=== PATIENT | female | born 1985 | race Caucasian/White ===

== ENCOUNTER 2016-03-11 12:38 | Outpatient (CLI) | payer MEDICAID, OTHER | END 2016-03-11 12:39 | disposition home or self-care (01) | DX: R94.6 Abnormal results of thyroid function studies (principal); O20.0 Threatened abortion ==

== ENCOUNTER 2016-03-25 12:29 | Outpatient (CLI) | payer OTHER | END 2016-03-25 12:30 | disposition home or self-care (01) | DX: O26.851 Spotting complicating pregnancy, first trimester (principal); Z3A.01 Less than 8 weeks gestation of pregnancy ==

== ENCOUNTER 2016-03-31 10:45 | Outpatient (CLI) | payer OTHER | END 2016-03-31 10:46 | disposition home or self-care (01) | DX: O03.4 Incomplete spontaneous abortion without complication (principal) ==

== ENCOUNTER 2016-11-04 07:03 | Outpatient (CLI) | payer OTHER | END 2016-11-04 07:04 | disposition home or self-care (01) | LOC: LAB.F 07:03 | PROVIDERS: ATTEND Midwife | DX: O36.8910 Maternal care for other specified fetal problems, first trimester, not applicable or unspecified (principal) | CPT/HCPCS: 36415; 84702 ==

== ENCOUNTER 2016-11-13 11:03 | Outpatient (CLI) | payer OTHER | END 2016-11-13 11:04 | disposition home or self-care (01) | LOC: LAB 11:03 | PROVIDERS: ATTEND Midwife | DX: O20.0 Threatened abortion (principal) | CPT/HCPCS: 84702 ==

== ENCOUNTER 2016-11-18 10:15 | Outpatient (CLI) | payer OTHER | END 2016-11-18 10:16 | disposition home or self-care (01) | LOC: LAB.F 10:15 | PROVIDERS: ATTEND Midwife | DX: O20.0 Threatened abortion (principal) | CPT/HCPCS: 36415; 84702 ==

== ENCOUNTER 2023-01-31 14:46 | Outpatient (CLI) | payer BC ==
--- NOTE | 2023-02-01 14:20 | Ultrasound Report ---
PROCEDURE: Pelvic w/Transvaginal INDICATIONS: DYSMENORRHEA TECHNIQUE: Real-time scanning was performed of the pelvic organs, with image documentation. Additional endovagi nal scanning was necessary due to incomplete visualization of the adnexal and endometrial structures by transabdominal scanning. COMPARISON: None. FINDINGS: Uterus: Uterus is anteverted and normal in size at 8.1 x 4.7 x 5.7 cm. The myometrium is heterogene ous. The endometrium measures 13 mm in combined thickness. Left intramural versus submucosal fibroi d measuring 2.0 cm Ovaries: The right ovary measures 3.3 x 2.6 x 4.3 cm, with a calculated ovarian volume of 19.3 cc. Right ovarian hemorrhagic cyst measuring 1.3 cm. The left ovary measures 2.8 x 1.9 x 4.1 cm, with a c alculated ovarian volume of 11.4 cc. Less than 12 follicles can be seen in each ovary. No adnexal m asses are seen. No cystic lesions measuring greater than 3 cm. Other: No pathologic free abdominal or pelvic fluid. IMPRESSION: 1.Left intramural versus submucosal fibroid measuring 2.0 cm. 2.Right ovarian hemorrhagic cyst measuring 1.3 cm, statistically benign in a premenopausal female. 3.Endometrium measures 13 mm which is within normal limits for a premenopausal female. Reviewed by: Fidel Sparks MD on 02/01/2023 2:19 PM PST Approved by: Fidel Sparks MD on 02/01/2023 2:19 PM PST Station ID: [id number]
== END 2023-01-31 14:47 | disposition home or self-care (01) ==
LOC: DI 14:46
PROVIDERS: ATTEND Registered Nurse
DX: N94.5 Secondary dysmenorrhea (principal); D25.9 Leiomyoma of uterus, unspecified; N83.201 Unspecified ovarian cyst, right side

== ENCOUNTER 2024-10-14 12:51 | Observation (INO) ==
[2024-10-14] MEDS: ONDANSETRON 4 MG/2 ML VIAL IVP STA ×2 (13:13→19:22)
[2024-10-14] MEDS: fentaNYL 100 MCG/2 ML VIAL IVP STA (13:13)
--- NOTE | 2024-10-14 13:15 | ED Physician Documentation ---
History of Present Illness Stated complaint Stated Complaint: ABD PX Chief complaint Chief Complaint: Abd Pain Additonal information Additional information: Patient is a 39-year-old female who presents to the ER for recurrence of abdominal pain. She was seen overnight, and ultrasounds were performed which showed a large right-sided adnexal mass, uterine fibroids. She has a 2-year history of ongoing symptoms, and today at 3:30 PM is supposed to have an MRI of her pelvis performed. She was discharged this morning by myself after her symptoms were controlled, and her ultrasounds did not appear acute. She went home and nap for an hour, and states that she woke up with significant pain in the same area. She arrives via EMS. She denies fever chills chest pain or shortness of breath. She does endorse nausea associate with this pain. She is significantly uncomfortable. Review of Systems Status of ROS: See HPI Meds/Allgy Home Medications Ambulatory Orders Medication Instructions Recorded Confirmed semaglutide 1 mg/dose (2 mg/1.5 1 mg subcut QWEEK 09/0710/14/24 mL) subcutaneous pen injector nitrofurantoin 100 mg PO Q12H 5 days #10 ca ps 10/14/24 monohydrate/macrocrystals 100 mg capsule (Macrobid) Allergies Allergies Allergy/AdvReac Type Severity Reaction Status Date / Time No Known Drug Allergies Allergy Verified 10/14/24 12:54 PFSH Active Problems All Active Problems Intractable pain (Acute) IUD complication (Acute) Endometrioma of both ovaries (Acute) Pelvic pain in female (Acute) UTI (urinary tract infection) (Acute) Abdominal pain (Acute) Uterine fibroid (Acute) Adnexal mass (Acute) Family history of oral cancer (Acute) Left adnexal tenderness (Acute) History of endometriosis (Acute) Ovarian cyst, left (Acute) Pelvic pain in female (Acute) History of ovarian cyst (Acute) History of uterine fibroid (Acute) History of cervical dysplasia (Acute) Abnormal uterine bleeding (AUB) (Acute) Breast changes, fibrocystic (Acute) Dense breast tissue (Acute) History of breast augmentation (Acute) Medical History Medical History (Updated 10/14/24 @ 20:05 by Enmanuel Jean-Baptiste MD) History of uterine fibroid Family History Family History (Updated 08/01/24 @ 10:12 by Mercedes Larios MA) Mother Oral cancer Social History Social History Smoking Status: Smoker current status unk Do you feel safe in your home environment?: Yes History of physical, verbal, emotional, or financial abuse?: No Are you sexually active?: No Exam Exam Vital Signs: Vital Signs x48h Pulse Resp BP Pulse Ox 10/14/24 20:17 88 18 124/78 95 10/14/24 18:21 80 18 91/58 L 99 10/14/24 16:07 73 18 93 10/14/24 15:00 68 15 92/54 L 93 Constitutional Appears uncomfortable, writhing in bed, intermittently moaning. Eyes conjunctivae normal Respiratory breath sounds equal bilaterally, normal respiratory effort, clear to aus cultation bilaterally and no wheezes Cardiovascular normal heart rate noted, regular rhythm noted and no murmur Gastrointestinal Significant tenderness palpation in pelvic region, worse on right side. Guarding is present. No upper abdominal tenderness to palpation. No rigidity. No CVA tenderness bilaterally. Back/Pelvis no thoracic spine tenderness and no lumbar spine tenderness Neurology GCS 15 Psychiatry mental status grossly normal and oriented x3 Skin skin color normal Results Vitals Vitals: Vital Signs - 24 hr 10/14/24 09:31 10/14/24 09:35 10/14/24 12:52 Pulse Rate Respiratory Rate Blood Pressure O2 Saturation O2 Source Room air Pain Intensity 8 10 10/14/24 13:13 10/14/24 13:32 10/14/24 14:20 Pulse Rate Respiratory Rate Blood Pressure O2 Saturation O2 Source Pain Intensity 10 7 10 10/14/24 15:00 10/14/24 16:07 10/14/24 16:54 Pulse Rate 68 73 Respiratory Rate 15 18 Blood Pressure 92/54 L O2 Saturation 93 93 O2 Source Room air Room air Pain Intensity 5 8 10/14/24 17:15 10/14/24 17:36 10/14/24 18:17 Pulse Rate Respiratory Rate Blood Pressure O2 Saturation O2 Source Pain Intensity 8 7 10 10/14/24 18:21 10/14/24 19:23 10/14/24 20:08 Pulse Rate 80 Respiratory Rate 18 Blood Pressure 91/58 L O2 Saturation 99 O2 Source Room air Pain Intensity 6 9 10 10/14/24 20:17 Pulse Rate 88 Respiratory Rate 18 Blood Pressure 124/78 O2 Saturation 95 O2 Source Pain Intensity Oxygen O2 Source Room air Labs Labs: Laboratory Tests 10/14/24 13:24 Lactic Acid 1.6 PD Medical Decision Making ED course ED course: Assessment: This is a 39-year-old female comes back to the ER a few hours after discharge this morning with significant onset of worsened lower abdominal pain. Patient states that the pain feels similar to previous presentations where she has been worked up for torsion and found to have a large mass on her right adnexa. DDx: Includes but not limited to, ovarian torsion, ovarian cyst, hemorrhagic ovarian cyst, UTI, uterine fibroid, pelvic inflammatory disease, TOA, etc. Workup: Labs completed previously this morning during initial visit. MRI pelvis shows bilateral ovarian endometriosis plus or minus focal uterine adenomyosis versus fibroids. There is also inferior displacement and malposition of the IUD. Treatment: Fentanyl 50 mcg, Zofran 4 mg x 2, Dilaudid 1 mg x 2, Dilaudid 0.5 mg x 2 Discussion: I discussed this patient's presentation with the on-call medical insurance clerk who recommended that she continue to receive pain medication and obtain her MRI 330pm today. I did initially order repeat ultrasounds out of concern that she was having torsion however the radiologist and broom builder inform me that they were not able to see flow reliably due to the extent of her mass, and felt that it would be futile to obtain an ultrasound because they would not be able to tell whether she was having torsion or not based off of her anatomy. Therefore it was recommended that she get her MRI soon as possible which is already scheduled for 330 this afternoon. The medical insurance clerk on-call did come evaluate the patient, and removed her IUD hoping that would help her pain due to its malposition. However on reassessment the patient is still having significant discomfort, and therefore will be admitted to the [facility] for pain control and possible removal of her mass in the OR tonight or tomorrow. Patient agreeable with this plan. At time of my signout her pain was still present but more controlled. She remained hemodynamically stable throughout her time in the ER under my care. Discharge Plan Discharge Patient Disposition: 66 [facility] DC/Xfer Condition: Stable Clinical Impression: Pelvic pain in female Prescriptions: No Action nitrofurantoin monohyd/m-cryst [Macrobid] 100 mg capsule 100 mg PO Q12H 5 Days Qty: 10 0RF Rx Instructions: must administer with a meal/food Mirena 21 mcg/24hr (up to 8 yrs) 52 mg intrauterine device 1 device intrauterine ONCE Qty: 1 0RF semaglutide 1 mg/dose (2 mg/1.5 mL) pen injector 1 mg subcut QWEEK Print Language: Armenian
--- OUTSIDE RECORDS SUMMARY | 2024-10-14 13:40 | EXTERNAL MEDICAL SUMMARY RPT | Continuity of Care Document ---
Author Organization [facility] Address [address] [place] [address] Phone Problems date description facility 2024-08-05 09:36 Abnormal uterine and vaginal bl eeding, unspecified [facility] 2024-08-05 09:36 Pelvic and perineal pain [facility] 2024-08-05 09:36 Personal history of other benig n neoplasm [facility] 2024-08-05 09:36 Personal history of cervical dy splasia [facility] 2024-08-05 09:36 Personal history of other diseases of the female genital tract [facility] 2024-08-05 09:38 Diffuse cystic mastopathy of un specified breast [facility] 2024-08-05 09:38 Dense breasts, unspecified [facility] 2024-08-05 09:38 Breast [facility] 2024-08-05 13:08 Diffuse cystic mastopathy of un specified breast [facility] 2024-08-05 13:08 Dense breasts, unspecified [facility] 2024-08-05 13:08 [facility] 2024-08-05 13:10 Abnormal uterine and vaginal bl eeding, unspecified [facility] 2024-08-05 13:10 Pelvic and perineal pain [facility] 2024-08-05 13:10 Personal history of other benig n neoplasm [facility] 2024-08-05 13:10 Personal history of cervical dy splasia [facility] 2024-08-05 13:10 Personal history of other diseases of the female genital tract [facility] 2024-08-05 13:11 Diffuse cystic mastopathy of un specified breast [facility] 2024-08-05 13:11 Dense breasts, unspecified [facility] 2024-08-05 13:11 [facility] 2024-08-05 13:12 Abnormal uterine and vaginal bl eeding, unspecified [facility] 2024-08-05 13:12 Pelvic and perineal pain [facility] 2024-08-05 13:12 Personal history of other benig n neoplasm [facility] 2024-08-05 13:12 Personal history of cervical dy splasia [facility] 2024-08-05 13:12 Personal history of other diseases of the female genital tract [facility] 2024-08-07 10:44 Diffuse cystic mastopathy of un specified breast [facility] 2024-08-07 10:44 Abnormal uterine and vaginal bl eeding, unspecified [facility] 2024-08-07 10:44 Pelvic and perineal pain [facility] 2024-08-07 10:44 Dense breasts, unspecified [facility] 2024-08-07 10:44 Personal history of other benig n neoplasm [facility] 2024-08-07 10:44 Personal history of cervical dy splasia [facility] 2024-08-07 10:44 Personal history of other diseases of the female genital tract [facility] 2024-08-07 10:44 Breast implant status [facility] 2024-08-07 10:49 Diffuse cystic mastopathy of un specified breast [facility] 2024-08-07 10:49 Abnormal uterine and vaginal bl eeding, unspecified [facility] 2024-08-07 10:49 Pelvic and perineal pain [facility] 2024-08-07 10:49 Dense breasts, unspecified [facility] 2024-08-07 10:49 Personal history of other benig n neoplasm [facility] 2024-08-07 10:49 Personal history of cervical dy splasia [facility] 2024-08-07 10:49 Personal history of other diseases of the female genital tract [facility] 2024-08-07 10:49 Breast implant status [facility] 2024-08-07 10:51 Diffuse cystic mastopathy of un specified breast [facility] 2024-08-07 10:51 Abnormal uterine and vaginal bl eeding, unspecified [facility] 2024-08-07 10:51 Pelvic and perineal pain [facility] 2024-08-07 10:51 Dense breasts, unspecified [facility] 2024-08-07 10:51 Personal history of other benig n neoplasm [facility] 2024-08-07 10:51 Personal history of cervical dy splasia [facility] 2024-08-07 10:51 Personal history of other diseases of the female genital tract [facility] 2024-08-07 10:51 Breast implant status [facility] 2024-08-20 15:26 Abnormal uterine and vaginal bl eeding, unspecified [facility] 2024-08-20 15:27 Diffuse cystic mastopathy of un specified breast [facility] 2024-08-20 15:27 Abnormal uterine and vaginal bl eeding, unspecified [facility] 2024-08-20 15:27 Pelvic and perineal pain [facility] 2024-08-20 15:27 Dense breasts, unspecified [facility] 2024-08-20 15:27 Personal history of other benig n neoplasm [facility] 2024-08-20 15:27 Personal history of cervical dy splasia [facility] 2024-08-20 15:27 Personal history of other diseases of the female genital tract [facility] 2024-08-20 15:27 Breast implant status [facility] 2024-08-20 15:48 Abnormal uterine and vaginal bl eeding, unspecified [facility] 2024-09-30 12:32 Diffuse cystic mastopathy of un specified breast [facility] 2024-09-30 12:32 Dense breasts, unspecified [facility] 2024-09-30 12:32 Breast implant status [facility] 2024-09-30 13:09 Abnormal uterine and vaginal bl eeding, unspecified [facility] 2024-09-30 13:09 Pelvic and perineal pain [facility] 2024-09-30 13:09 Personal history of other benig n neoplasm [facility] 2024-09-30 13:09 Personal history of cervical dy splasia [facility] 2024-09-30 13:09 Personal history of other diseases of the female genital tract [employer] 2024-10-01 00:01 Diffuse cystic mastopathy of un specified breast [facility] 2024-10-01 00:01 Abnormal uterine and vaginal bl eeding, unspecified [facility] 2024-10-01 00:01 Pelvic and perineal pain [employer] [facility] 2024-10-01 00:01 Dense breasts, unspecified [facility] 2024-10-01 00:01 [facility] 2024-10-01 00:01 Personal history of cervical dy splasia [employer] 2024-10-01 00:01 Personal history of other diseases of the female genital tract [facility] 2024-10-01 00:01 [facility] 2024-10-01 16:48 Unspecified ovarian cyst, left side [facility] 2024-10-01 16:51 Unspecified ovarian cyst, left side [facility] 2024-10-01 16:51 Abnormal uterine and vaginal bl eeding, unspecified [facility] 2024-10-01 16:51 Pelvic and perineal pain [employer] 2024-10-01 16:51 Personal history of other benig n neoplasm [facility] 2024-10-01 16:51 Personal history of other diseases of the female genital tract [facility] 2024-10-02 00:02 Unspecified ovarian cyst, left side [facility] 2024-10-02 00:02 Abnormal uterine and vaginal bl eeding, unspecified [facility] 2024-10-02 00:02 Other specified cond itions associated with female genital organs and menstrual cycle [facility] 2024-10-02 00:02 Pelvic and perineal pain [employer] 2024-10-02 00:02 Personal history of other benig n neoplasm [facility] 2024-10-02 00:02 Personal history of other diseases of the female genital tract [employer] 2024-10-02 00:03 Unspecified ovarian cyst, left side [facility] 2024-10-02 00:03 Abnormal uterine and vaginal bl eeding, unspecified [facility] 2024-10-02 00:03 Other specified cond itions associated with female genital organs and menstrual cycle [facility] 2024-10-02 00:03 Pelvic and perineal [facility] 2024-10-02 00:03 Personal history of other benig n neoplasm [facility] 2024-10-02 00:03 Personal history of other diseases of the female genital tract [facility] 2024-10-02 00:05 Unspecified ovarian cyst, left side [facility] 2024-10-02 00:05 Abnormal uterine and vaginal bl eeding, unspecified [facility] 2024-10-02 00:05 Other specified cond itions associated with female genital organs and menstrual cycle [facility] 00:05 Pelvic and perineal pain [facility] 2024-10-02 00:05 Personal history of other benig n neoplasm [facility] 2024-10-02 00:05 Personal history of other diseases of the female genital tract [facility] 2024-10-02 13:58 Unspecified ovarian cyst, left side [facility] 2024-10-02 13:58 Abnormal uterine and vaginal bl eeding, unspecified [facility] 2024-10-02 13:58 Other specified cond itions associated with female genital organs and menstrual cycle [facility] 2024-10-02 13:58 Pelvic and perineal pain [facility] 2024-10-02 13:58 Personal history of other benig n neoplasm [facility] 2024-10-02 13:58 Personal history of other diseases of the female genital tract [facility] 2024-10-02 15:39 Unspecified ovarian cyst, left side [facility] 2024-10-02 15:39 Other specified cond itions associated with female genital organs and menstrual cycle [facility] 2024-10-02 15:39 Pelvic and perineal pain [facility] 2024-10-03 15:36 Unspecified ovarian cyst, left side [facility] 2024-10-03 15:36 Other specified cond itions associated with female genital organs and menstrual cycle [facility] 2024-10-03 15:36 Pelvic and perineal pain [facility] 2024-10-03 15:37 Unspecified ovarian cyst, left side [facility] 2024-10-03 15:37 Other specified cond itions associated with female genital organs and menstrual cycle [facility] 2024-10-03 15:37 Pelvic and perineal pain [facility] 2024-10-04 07:48 Diffuse cystic mastopathy of un specified breast [facility] 07:48 [facility] 2024-10-04 13:06 Unspecified ovarian cyst, left side [facility] 2024-10-04 13:06 Noninflammatory diso rder of ovary, fallopian tube and broad ligament, unspecified [email or web address] 2024-10-04 13:06 Abnormal uterine and vaginal bl eeding, unspecified [employer] 2024-10-04 13:06 Other specified cond itions associated with female genital organs and menstrual cycle [facility] 2024-10-04 13:06 Pelvic and perineal pain [employer] 2024-10-04 13:06 Personal history of other benig n neoplasm [facility] 2024-10-04 13:06 Personal history of other diseases of the female genital tract [email or web address] Results/Labs test date facility value unit notes Result panel 1 NUCLEATED RED BLOOD CELLS AUTO 2024-10-01 16:45 [facility] 0.0 /100wbc (missing) BASOPHILS # (AUTO) 2024-10-01 16:45 [facility] 0.0 10 3/ul (missing) NRBC ABSOLUTE COUNT (AUTO) 2024-10-01 16:45 [facility] 0.00 x10 3/ul (missing) EOSINOPHILS # (AUTO) 2024-10-01 16:45 [facility] 0.1 10 3/ul (missing) MONOCYTES # (AUTO) 2024-10-01 16:45 [facility] 0.3 10 3/ul (missing) LYMPHOCYTES # (AUTO) 2024-10-01 16:45 [facility] 1.8 10 3/ul (missing) MEAN PLATELET VOLUME 2024-10-01 16:45 [facility] 10.2 fl (missing) HGB - HEMOGLOBIN 2024-10-01 16:45 [facility] 11.9 g/dl (missing) RED CELL DISTRIBUTION WIDTH 2024-10-01 16:45 [facility] 13.8 % (missing) NEUTROPHILS # (AUTO) 2024-10-01 16:45 [facility] 2.6 10 3/ul (missing) PLT - PLATELET COUNT 2024-10-01 16:45 [facility] 235 10 3/ul (missing) MEAN CORPUSCULAR HEMOGLOBIN 2024-10-01 16:45 [facility] 29.2 pg (missing) MEAN CORPUSCULAR HGB CONC 2024-10-01 16:45 [facility] 33.0 g/dl (missing) HCT - HEMATOCRIT 2024-10-01 16:45 [facility] 36.1 % (missing) RED BLOOD COUNT 2024-10-01 16:45 [facility] 4.08 10 6/ul (missing) WHITE BLOOD COUNT 2024-10-01 16:45 [facility] 4.9 x10 3/ul (missing) CA 125 2024-10-01 16:45 [facility] 43.5 u/ml [facility] [place] DXI uses an chemiluminescent immunoassay to determine the OV 125 value. Values obtained with different assay methods or kits cannot be used interchangeably. Results cannot be interpreted as absolute evidence for the presence or absence of malignant disease. MEAN CORPUSCULAR VOLUME 2024-10-01 16:45 [facility] 88.5 fl (missing) Social History date description facility
[2024-10-14] MEDS ORDERED: GADOTERATE MEGLUMINE 7.5 MMOL/15 ML VIAL ONE (14:11)
[2024-10-14] MEDS: HYDROmorphone 0.5 MG/0.5 ML SYRINGE IVP STA ×2 (14:20→17:15)
[2024-10-14] MEDS: GADOTERATE MEGLUMINE 7.5 MMOL/15 ML VIAL IVP ONE (16:34)
--- NOTE | 2024-10-14 16:52 | MRI Report ---
PROCEDURE: MRI Pelvis W/WO INDICATIONS: Pelvic pain CONTRAST: 12.4ml Clariscan TECHNIQUE: Multiplanar, multisequence MRI of the pelvis was performed, with and without intravenous contrast. COMPARISON: Pelvic ultrasound 10/14/2024, 09/30/2024, 01/31/2023 FINDINGS: Image quality: Diagnostic. Bowel and peritoneum: Trace right adnexal fluid, nonspecific. No pathologic free pelvic fluid. Inferior colon and small bowel loops are normal in caliber. Genitourinary system: The uterus is anteverted and retroflexed, similar compared to prior exams. The IUD is inferiorly displaced. The crossbars are in the lower uterine segment in the vertical petrous is present in the cervical canal. Left posterior fundal myometrium is mildly heterogeneous and vaguely rounded with mass effect on the endometrium. There is probably a small subserosal T2 hypointense mass arising from the right fundus, and an anterior lower uterine segment myometrial mass. These enhance more than myometrium postcontrast. Both ovaries are displaced posteriorly and medial to the uterine fundus, and adherent to each other. Both ovaries demonstrate a disorganized multicystic appearance containing several loculated areas of high T1 signal fluid consistent with hemorrhage. There is a mildly T2 hyperintense plaque along the uterine fundus tethering the anterior rectal serosa, best seen on sagittal series 3 image 19. Bladder wall is normal in thickness. Distal ureters are non distended. Nodes and vessels: No pathologic pelvic or inguinal adenopathy by size criteria. Iliac vessels are normal in caliber. Soft tissues: No inguinal hernias. Bones: Marrow is normal in overall signal. IMPRESSION: MR findings most suggestive of bilateral ovarian endometriosis plus or minus focal uterine adenomyosis versus fibroids. Malignancy is felt less likely. Gynecologic consult recommended. Inferior displacement and now malposition of IUD, new since 09/30/2024. Reviewed by: Dionne Banuelos MD on 10/14/2024 4:50 PM PDT Approved by: Dionne Banuelos MD on 10/14/2024 4:50 PM PDT Station ID: [id number]
[2024-10-14] MEDS: HYDROmorphone 1 MG/ML CARPUJECT IVP STA ×2 (18:17→20:08)
--- NOTE | 2024-10-14 19:19 | HISTORY & PHYSICAL EXAMINATION ---
History of Present Illness History of Present Illness HPI Comment/Other: Patient is a 39-year-old -0-2-2 presenting today with acute pelvic pain. She has a history of an adnexal mass and has a referral to [facility] for surgery. This became acutely worse at 1 AM this morning. No nausea and vomiting. Meds/Allgy Home Medications Ambulatory Orders Medication Instructions Recorded Confirmed semaglutide 1 mg/dose (2 mg/1.5 1 mg subcut QWEEK 09/0710/14/24 mL) subcutaneous pen injector nitrofurantoin 100 mg PO Q12H 5 days #10 ca ps 10/14/24 monohydrate/macrocrystals 100 mg capsule (Macrobid) Allergies Allergies Allergy/AdvReac Type Severity Reaction Status Date / Time No Known Drug Allergies Allergy Verified 10/14/24 12:54 PFSH Active Problems All Active Problems IUD complication (Acute) Endometrioma of both ovaries (Acute) Pelvic pain in female (Acute) UTI (urinary tract infection) (Acute) Abdominal pain (Acute) Uterine fibroid (Acute) Adnexal mass (Acute) Family history of oral cancer (Acute) Left adnexal tenderness (Acute) History of endometriosis (Acute) Ovarian cyst, left (Acute) Pelvic pain in female (Acute) History of ovarian cyst (Acute) History of uterine fibroid (Acute) History of cervical dysplasia (Acute) Abnormal uterine bleeding (AUB) (Acute) Breast changes, fibrocystic (Acute) Dense breast tissue (Acute) History of breast augmentation (Acute) Medical History Medical History (Updated 10/14/24 @ 19:18 by Enmanuel Jean-Baptiste MD) History of uterine fibroid Family History Family History (Updated 08/01/24 @ 10:12 by Mercedes Larios MA) Mother Oral cancer Social History Social History Smoking Status: Smoker current status unk Do you feel safe in your home environment?: Yes History of physical, verbal, emotional, or financial abuse?: No Are you sexually active?: No Exam Exam Vital Signs: Vital Signs x48h Pulse Resp BP Pulse Ox 10/14/24 18:21 80 18 91/58 L 99 10/14/24 16:07 73 18 93 10/14/24 15:00 68 15 92/54 L 93 Constitutional normal general appearance Appears in significant discomfort. Respiratory normal respiratory effort Gastrointestinal Tender in low abdomen Vulva Vulva Exam: normal appearance and normal hair distribution Vagina Vaginal Exam: normal and rugated Cervix IUD seen from cervical os. See procedure note. Uterus Uterus: mobile Conclusion/Plan Problem List (1) Pelvic pain in female: Plan: Unsure of etiology. She has bilateral endometriomas, a misplaced IUD that was removed in the ED, uterine fibroids. The IUD coming from her uterus and expelled into the cervix could cause a significant amount of pain. Pain has persisted longer than I would expect, but may still be related. Acute endometrioma pain would be unlikely. There may have an aspect of hemorrhagic cyst although only a small amount of fluid. It is possible she has a torsion and ovary is not seen on ultrasound. Due to the size of the endometriomas, radiology felt they are unlikely to see flow. We did discuss admission for pain control with anticipation of resolution. She would consider surgery in the morning if pain persists. She does not want hysterectomy at this time. We did discuss that if this were an ovarian torsion, we should do surgery sooner, but she feels comfortable waiting. It would be unusual to have multiple issues all at the same time, but it is possible.We discussed the possibility of losing an ovary if surgery was delayed if this were torsion. It would be highly unlikely for both ovaries to be torsed. As they appear possibly adherent to each other, it is unlikely to be a true torsion. I believe hysterectomy will be difficult with likely tethering to the ovaries and rectum. I would be willing to perform urgent laparoscopy, but would likely defer hysterectomy due to the tethering. There is a high chance of requiring an open procedure, and I believe she would benefit from robotic assistance if possible. Will try to arrange transfer. (2) Endometrioma of both ovaries: Plan: As above (3) Uterine fibroid: Plan: As above Qualifiers: Uterine leiomyoma location: intramural and subserous Qualified Code(s): D25.1 - Intramural leiomyoma of uterus; D25.2 - Subserosal leiomyoma of uterus (4) IUD complication: Plan: IUD seen from cervical os and removed today. See procedure note. Qualifiers: Device complication type: mechanical Encounter type: initial encounter Mechanical complication type: displacement Qualified Code(s): T83.32XA - Displacement of intrauterine contraceptive device, initial encounter
--- NOTE | 2024-10-14 19:29 | PROCEDURE REPORT ---
Hospitalist Procedure Note Procedure Note Procedure Note: Procedure date: 10/14/2024 Procedure: IUD removal Indication: Displaced IUD Patient consent: Signed in chart Anesthesia: None Complications: None Estimated blood loss: 0 Postop diagnosis: Status post IUD removal Procedure summary: After informed consent was obtained, patient placed in dorsolithotomy position. Speculum is used to visualize the cervix and IUD was seen protruding from cervical os. This was grasped with a ring forcep and easily removed. There examined and found to be whole. Was discarded. Patient tolerated the procedure well.
[2024-10-14] MEDS ORDERED: ONDANSETRON ODT 4 MG TABLET TL PRN (20:04)
[2024-10-14] MEDS: KETOROLAC 30 MG/ML VIAL IVP SCH (20:57)
[2024-10-14] MEDS: hydrOXYzine 50 MG/ML VIAL IM STA (20:57)
[2024-10-14] MEDS: ONDANSETRON 4 MG/2 ML VIAL IVP PRN (23:54)
[2024-10-14] MEDS: SODIUM CHLORIDE FLUSH 0.9% 10 ML SYRINGE IVP SCH (23:55)
[2024-10-15] MEDS: MORPHINE 2 MG/ML CARPUJECT IVP PRN (00:27)
[2024-10-15] MEDS: oxyCODONE 5 MG TABLET PO PRN (04:33)
[2024-10-15] MEDS: SODIUM CHLORIDE FLUSH 0.9% 10 ML SYRINGE IVP PRN (04:33)
[2024-10-15] MEDS: ACETAMINOPHEN 500 MG TABLET PO SCH (04:33)
--- NOTE | 2024-10-15 05:46 | PROVIDER PROGRESS NOTE ---
Subjective Subjective Subjective: Intermittent significant pain overnight, now radiating to ribs. Worse in the epigastric area 07/16. Did take morphine once overnight and oxycodone once. Mildly low BP but no compensatory tachycardia. Last BM yesterday. Some flatus, but decreased. One episode of vomiting. Current Medications Current Medications Current Medications: Current Medications Generic Name Dose Route Start Last Admin Trade Name Freq PRN Reason Stop Dose Admin Acetaminophen 1,000 mg 10/15/24 00:00 10/15/24 04:33 Acetaminophen 500 Mg Tablet PO Not Given Q6HR KIKI Ketorolac Tromethamine 30 mg 10/14/24 21:00 10/15/24 04:32 Ketorolac 30 Mg/Ml Vial IVP 10/15/24 15:01 30 mg Q6H KIKI Administration Morphine Sulfate 2 mg 10/14/24 20:04 10/15/24 00:27 Morphine 2 Mg/Ml Carpuject IVP 2 mg Q2HR PRN Administration Pain 8 to 10 Ondansetron HCl 4 mg 10/14/24 20:41 10/14/24 23:54 Ondansetron 4 Mg/2 Ml Vial IVP 4 mg Q6HR PRN Administration Nausea / Vomiting Oxycodone HCl 5 mg 10/14/24 20:04 10/15/24 04:33 Oxycodone 5 Mg Tablet PO 5 mg Q4HR PRN Administration Pain 8 to 10 Sodium Chloride 10 ml 10/14/24 20:04 10/15/24 04:33 Sodium Chloride Flush 0.9% 10 Ml Syringe IVP 10 ml PRN PRN Administration NEEDED PER PROVIDER ORDERS Sodium Chloride 10 ml 10/15/24 01:00 10/14/24 23:55 Sodium Chloride Flush 0.9% 10 Ml Syringe IVP 10 ml 0100,0900,1700 KIKI Administration Objective Vital Signs/Intake & Output Vital Signs: Vital Signs x48h Temp Pulse Resp BP BP Pulse Ox 10/15/24 04:16 37.3 C 83 18 98/61 97 10/15/24 00:03 37.1 C 98 20 131/79 H 97 Intake & Output: Intake & Output 10/12/24 10/13/24 10/14/24 10/15/24 23:59 23:59 23:59 23:59 Intake Total 120 / 120 Output Total 475 / 475 Balance 120 / 120 -475 / -475 Weight (kg) 143 lb 4.807 oz Objective General Appearance: positive Mild distress and Other (Patient up and walking although uncomfortable.) Respiratory: positive No respiratory distress and Breath sounds nml Cardiovascular: positive Regular rate & rhythm; negative Tachycardia Abdomen: positive Nml bowel sounds, Tenderness and Other (Moderate tenderness to upper abdomen in epigastric area. Mild to right upper quadrant. ) Neurologic/Psychiatric: positive Oriented x3 and CN's nml (2-12) Lab Results 10/15/24 05:44 10/15/24 05:44 Other Labs: Lab Results x24hrs 10/14/24 Range/Units 13:24 Lactic Acid 1.6 (0.5-2.2) mmol/L Assessment/Plan Problem List (1) Epigastric abdominal pain: Impression: CMP and lipase ordered and unremarkable. Last BM yesterday morning, has not eating anything significant in 24 hours. Pain does seem to come in waves, initially thought to be uterine contractions, but may be GI related. Will try PPI. Consider gallbladder, pancrease, contipation, obstruction. Will consider CT abdomen if not improving although SBO unlikely with normal bowel sounds and BM yesterday. (2) Pelvic pain in female: Impression: Still no identifiable cause, but seeming less likely gynecologic with pain increasing in upper abdomen. Will look for non-gynecologic causes further. No significant free fluid seen on multiple images yesterday, so hemorrhage less likely. HGB did drop from 13 to 11.5, but level similar to two weeks ago. (3) Endometrioma of both ovaries: Impression: Plan for ourpatient surgery (4) Uterine fibroid: Impression: Plan for ourpatient surgery Qualifiers: Uterine leiomyoma location: intramural and subserous Qualified Code(s): D25.1 - Intramural leiomyoma of uterus; D25.2 - Subserosal leiomyoma of uterus
[2024-10-15 05:53] LABS: HCT - HEMATOCRIT 34.0 % (37.0-47.0); HGB - HEMOGLOBIN 11.5 g/dL (12.0-16.0); MEAN PLATELET VOLUME 10.2 fL (7.9-10.8); NRBC ABSOLUTE COUNT (AUTO) 0.00 x10^3/uL; NUCLEATED RED BLOOD CELLS AUTO 0.0 /100WBC; PLT - PLATELET COUNT 191 10^3/uL (130-450); RED CELL DISTRIBUTION WIDTH 13.7 % (12.0-15.0)
[2024-10-15 06:04] LABS: ALT ALANINE AMINOTRANSFERASE 6.0 IU/L (10-60); AST ASPARTATE AMINOTRANSFERASE 10.0 IU/L (10-42); BUN - BLOOD UREA NITROGEN 14.0 mg/dL (6-20); CARBON DIOXIDE - CO2 23.0 mmol/L (21-32); CREATININE 0.7 mg/dL (0.6-1.3); GFR - MDRD 93.0 (>89)
[2024-10-15] MEDS: PANTOPRAZOLE 40 MG VIAL IVP SCH (08:49)
[2024-10-15] MEDS: LIDOCAINE VISCOUS 2% 15 ML UDC MM ONE (09:52)
[2024-10-15] MEDS: MAG HYDROX/AL HYDROX/SIMETH 30 ML UDC PO ONE (09:52)
[2024-10-15] MEDS ORDERED: DIATRIZOATE MEGLU/DIATRIZO SOD 30 ML BOTTLE PO ONE (10:56)
[2024-10-15] MEDS: IBUPROFEN 600 MG TABLET PO SCH (12:19)
--- NOTE | 2024-10-15 12:47 | CT Report ---
PROCEDURE: CT Abdomen/Pelvis W INDICATIONS: Abdominal pain, SBO CONTRAST: OMNI 300 100 ML TECHNIQUE: After the administration of intravenous contrast, a CT scan of the abdomen and pelvis was performed. Images were recorded and evaluated at appropriate window settings. Reformats: coronal and sagittal. For radiation dose reduction, the following was used: automated exposure control, adjustment of mA and/or kV according to patient size. COMPARISON: MRI pelvis 10/14/2024 FINDINGS: Image quality: Diagnostic. Lower chest: Lung bases are clear. Bilateral breast implants. Liver: No solid mass. Gallbladder: Multiple calcified gallstones without pericholecystic inflammatory changes. Biliary tree: No intrahepatic or extrahepatic dilation, accounting for age. Spleen: No splenomegaly. Pancreas: No pancreatic ductal dilation. Adrenals: No adrenal nodule. Kidneys and ureters: No hydronephrosis. No renal cystic lesion which requires follow up. No solid mass. Stomach, bowel and peritoneum: Moderate to large amount of stool in the ascending and transverse colon and with possible prominent stool in the descending and sigmoid colon. Nondilated fluid-filled loops of small bowel are seen in the pelvis without signs of obstruction. Normal appendix. Trace free flu id in the pelvis. Lymph nodes: No central or retroperitoneal adenopathy. Vessels: No infrarenal aortic aneurysm. Patent portal vein. PELVIS Reproductive organs: Intrauterine device appears to have been removed. Anteverted and retroflexed uterus with mildly heterogeneous enhancement. Multicystic appearance of the ovaries, better evaluated on the MRI performed on the day prior. Bladder: No abnormal wall thickening. Pelvic lymph nodes: No pelvic adenopathy by size criteria. Bones: No aggressive osseous abnormality. Mild scoliotic curvature of the included thoracolumbar spine. Other: No significant ventral or inguinal hernia. IMPRESSION: 1.Nondilated fluid-filled loops of small bowel in the pelvis may be related to a nonspecific enteritis. No signs of high-grade small bowel obstruction. 2.Heterogeneous multicystic appearance of the ovaries, better evaluated on the MRI pelvis dated 10/14/2024. 3.Cholelithiasis without signs of acute cholecystitis. Reviewed by: Howard Callahan MD on 10/15/2024 12:46 PM PDT Approved by: Howard Callahan MD on 10/15/2024 12:46 PM PDT Station ID: [id number]
--- NOTE | 2024-10-15 15:10 | Discharge Summary ---
Discharge Summary Admit Date: 10/14/24 Discharge Date: 10/15/24 Discharging Provider: Enmanuel Jean-Baptiste MD Code Status: Attempt Resuscitation DIAGNOSES Admission Diagnoses: Pelvic pain Uterine fibroids Endometriosis IUD problem Discharge Diagnoses with Status of Each Condition: Pelvic pain Uterine fibroids Endometriosis IUD problem Gallstones Constipation HPI History of Present Illness: Patient did better overnight, although still remains requiring pain medication. We were able to switch to mostly oral medications and only occasionally opioids. Still no fever or chills. Pain seems better, now colicky in nature with waves of intense pain followed by getting more comfortable. Mostly in her upper abdomen now as well as side. Constitutional: alert, no acute distress, well hydrated, well developed, well nourished, appropriate dress. Cardiovascular: Regular rate and rhythm. Respiratory: no respiratory distress. Abdomen: Moderate tenderness in the left lower quadrant. Mild to moderate tenderness diffusely Psych: affect and mood appropriate, normal interaction, good eye contact. HOSPITAL COURSE Hospital Course: Patient was admitted to the ED with acute abdominal pain. While there she had an MRI that showed bilateral endometriomas on her ovaries which are tethered to the uterus and uterus to rectum. IUD was misplaced so this was removed. She was kept overnight for pain control. We did discuss care with [facility] with whom we are trying to arrange outpatient surgery. She would benefit from an invasive surgery with colorectal surgeon present to dissect the tissue. She will at least need bilateral ovarian cystectomies, possible hysterectomy. While she was being kept overnight, pain shifted from pelvic to diffuse abdominal pain and colicky waves. She did have decreased flatus, so we got a CT scan that did not show any acute bowel processes although she did have a significant stool burden which would go with her colicky pain. She also had numerous calcified gallstones which may also contributed, although laboratory assessment did not show an elevation. After assessing various other causes, patient was comfortable going home. She declined opioid prescriptions and wanted manage with ibuprofen and Tylenol as well as MiraLAX. On discharge, she was arranging follow-up care with [facility] for outpatient surgery. We discussed that she would likely need benefit from cholecystectomy as well. ALLERGIES Allergies Allergy/AdvReac Type Severity Reaction Status Date / Time No Known Drug Allergies Allergy Verified 10/14/24 12:54 MEDICATIONS Ambulatory Orders Medication Instructions Recorded Confirmed semaglutide 1 mg/dose (2 mg/1.5 1 mg subcut QWEEK 09/0710/14/24 mL) subcutaneous pen injector nitrofurantoin 100 mg PO Q12H 5 days #10 ca ps 10/14/24 monohydrate/macrocrystals 100 mg capsule (Macrobid) PHYSICAL EXAM AT DISCHARGE Vital Signs: Vital Signs x48h Temp Pulse Resp BP Pulse Ox 10/15/24 09:40 37 C 69 16 83/47 L 100 LABS 10/15/24 05:44 10/15/24 05:44 FOLLOW UP Follow Up: With [facility] for upcoming surgery TIME SPENT Time Spent in Discharge (Minutes): 45 Discharge Plan Discharge Patient Disposition: Home, Self Care Condition: Stable Prescriptions: Continued nitrofurantoin monohyd/m-cryst [Macrobid] 100 mg capsule 100 mg PO Q12H 5 Days Qty: 10 0RF Rx Instructions: must administer with a meal/food semaglutide 1 mg/dose (2 mg/1.5 mL) pen injector 1 mg subcut QWEEK Discontinued Mirena 21 mcg/24hr (up to 8 yrs) 52 mg intrauterine device 1 device intrauterine ONCE Qty: 1 0RF Diet: Regular Interventions: Belongings Inventory Last Done: 10/14/24 21:51 Discharge Last Done: 10/15/24 15:03 Discharge Checklist - Nursing Last Done: 10/15/24 15:03 Print Language: Faroese Patient Instructions: Gallstones Dc, ED Endometriosis Stand Alone Forms: PCP List
[2024-10-15 15:30] VITALS: BP 97/63; TEMP 98.2; O2SAT 96
== END 2024-10-15 15:31 | disposition home or self-care (01) ==
LOC: MS3 12:51 → ED 12:51 → MS3 21:21
PROVIDERS: ADMIT Obstetrics & Gynecology; ATTEND Obstetrics & Gynecology
DX: N80.103 Endometriosis of bilateral ovaries, unspecified depth; R10.84 Generalized abdominal pain; D25.2 Subserosal leiomyoma of uterus; R10.2 Pelvic and perineal pain; D25.1 Intramural leiomyoma of uterus; K80.20 Calculus of gallbladder without cholecystitis without obstruction; K59.00 Constipation, unspecified; T83.32XA Displacement of intrauterine contraceptive device, initial encounter